=== PATIENT | female | born 2000 | race African-American/Black ===

== ENCOUNTER → 2025-02-09 11:55 | Outpatient (CLI) | payer OTHER, SELFPAY ==
--- NOTE | 2025-02-09 11:59 | DI.US.S_ITS ---
PROCEDURE: US OB <= 14 WEEKS FETUS INDICATIONS: Encounter for OUTSIDE/PRIOR DATING DATA: Last menstrual period (LMP): Unknown. LMP-based estimated date of delivery (ANDRES): Not applicable. First dating scan (date and location): Current exam. Estimated date of delivery (ANDRES) from first dating scan: 08/04/25 TECHNIQUE: Real-time scanning was performed of the fetus, with image documentation and biometric measurements. Endovaginal scanning: No COMPARISON: None. FINDINGS: General: A single living intrauterine gestation is present. Presentation: Variable. Placenta: Placental position is developing anterior and fundal , without previa. Amniotic fluid index: Subjectively normal cm, normal range is 5-24 cm. Single deepest vertical pocket is 3.7 cm. heart rate: 152 beats per minute. Maternal cervical canal: Closed and 3.3 cm long. Normal lower limit is 2.5 cm. biometrics: Biparietal diameter: 2.9 cm, 15 weeks two days Head circumference: 10.8 cm, 15 weeks one day Abdominal circumference: 8.9 cm, 15 weeks one day Femur length: 1.4 cm, 14 weeks 0 days Clinically estimated gestational age: Unsure Composite gestational age from present scan: 14 weeks six days Estimated weight and percentile: Not obtained Anatomic survey: Gestational age is too early for complete survey. IMPRESSION: Single live intrauterine with composite gestational age from the present scan of 14 weeks six days and sonographic ANDRES of 08/04/25. We strive to produce accurate, complete, and clear reports of imaging services. To assist us in improving patient care, this report was composed using standard report templates and voice recognition software. Therefore, it may contain abnormal punctuation, insertions and/or omissions. Occasional wrong-word or sound-alike substitutions may occur. Though we review the report and make efforts to correct it, we do recommend that the report be read carefully in proper context to recognize any text inaccuracies. Dictated by: Kelsea Lozano M.D. on 02/09/2025 at 22:45 Approved by: Kelsea Lozano M.D. on 02/09/2025 at 22:50
== END ==
DX: Z34.91 Encounter for supervision of normal pregnancy, unspecified, first trimester (principal); Z32.01 Encounter for pregnancy test, result positive; Z3A.14 14 weeks gestation of pregnancy
CPT/HCPCS: 76815